=== PATIENT | male | born 2000 | race Hispanic/Latino ===

== ENCOUNTER 2022-01-08 11:44 | Emergency (ER) | payer OTHER ==
[~2022-01-08] VITALS: Ht 175.3 cm; Wt 72.7 kg
[2022-01-08 11:48] VITALS: BP 132/78
[2022-01-08] MEDS ORDERED: AMOX875T2 PO (12:17)
[2022-01-08] MEDS ORDERED: KETOROLAC 30 MG/ML 1ML VIAL IM ONE (12:20)
== END 2022-01-08 12:36 | disposition home or self-care (01) ==
LOC: M ED 11:44
DX: K08.89 Other specified disorders of teeth and supporting structures (principal)
CPT/HCPCS: 96372; 99282; J1885

== ENCOUNTER → 2024-03-12 | Outpatient (CLI) | payer OTHER ==
[~2024-03-12] MED LIST: AMOX875T2 PO; ISOVUE-300 61% 100ML VIAL As Ordered ONE; LIDOCAINE 1% MDV 20ML VIAL As Ordered ONE; TRIAMCINOLONE ACETONIDE SUSP 40MG/ML 1ML VIAL As Ordered ONE
== END ==
LOC: M RAD 13:29
PROVIDERS: ATTEND Physician Assistant Surgical
DX: S73.122A Ischiocapsular ligament sprain of left hip, initial encounter (principal); X58.XXXA Exposure to other specified factors, initial encounter; Y92.9 Unspecified place or not applicable; Y93.9 Activity, unspecified
CPT/HCPCS: 20610; 77002; J3301; Q9967

== ENCOUNTER → 2024-03-19 | Outpatient (CLI) | payer OTHER ==
[~2024-03-19] MED LIST changes: -ISOVUE-300 61% 100ML VIAL As Ordered ONE; -LIDOCAINE 1% MDV 20ML VIAL As Ordered ONE; +PROHANCE 279.3MG/ML 15ML VIAL ONE; +PROHANCE 279.3MG/ML 5ML VIAL ONE; -TRIAMCINOLONE ACETONIDE SUSP 40MG/ML 1ML VIAL As Ordered ONE
== END ==
LOC: M PLAIMG 07:10
PROVIDERS: ATTEND Physical Medicine & Rehabilitation
DX: M54.17 Radiculopathy, lumbosacral region (principal)
CPT/HCPCS: 72158; A9576

== ENCOUNTER → 2024-06-12 | Outpatient (REF) ==
[~2024-06-12] MED LIST changes: -PROHANCE 279.3MG/ML 15ML VIAL ONE; -PROHANCE 279.3MG/ML 5ML VIAL ONE
== END ==
LOC: M PLAIMG 08:21
PROVIDERS: ATTEND Internal Medicine
DX: R52 Pain, unspecified (principal)

== ENCOUNTER 2024-08-20 08:51 | Emergency (ER) | payer OTHER ==
[~2024-08-20] VITALS: Ht 172.7 cm; Wt 86.3 kg
[2024-08-20] MEDS: ACETAMINOPHEN 500 MG TAB PO ONE (11:01)
[2024-08-20 11:06] VITALS: BP 122/78; TEMP 98.1; O2SAT 96
[2024-08-20] MEDS ORDERED: METH-1164 PO (11:35)
== END 2024-08-20 12:00 | disposition home or self-care (01) ==
LOC: EDBD 08:51 → M ED 08:51
DX: S32.018A Other fracture of first lumbar vertebra, initial encounter for closed fracture (principal); S62.002A Unspecified fracture of navicular [scaphoid] bone of left wrist, initial encounter for closed fracture; V59.9XXA Occupant (driver) (passenger) of pick-up truck or van injured in unspecified traffic accident, initial encounter; Y92.9 Unspecified place or not applicable; Y93.9 Activity, unspecified; Y99.9 Unspecified external cause status

== ENCOUNTER 2024-10-06 21:35 | Emergency (ER) | payer OTHER ==
[~2024-10-06] VITALS: Ht 175.3 cm; Wt 78.3 kg
[~2024-10-06 21:35] MED LIST changes: +METH-1164 PO
[2024-10-07 04:01] VITALS: BP 115/69
[2024-10-07 04:16] VITALS: O2SAT 98
[2024-10-07 04:22] VITALS: TEMP 98.5
== END 2024-10-07 04:31 | disposition home or self-care (01) ==
LOC: M ED 21:35
DX: S92.354A Nondisplaced fracture of fifth metatarsal bone, right foot, initial encounter for closed fracture (principal); X50.1XXA Overexertion from prolonged static or awkward postures, initial encounter; Y92.009 Unspecified place in unspecified non-institutional (private) residence as the place of occurrence of the external cause; Y93.01 Activity, walking, marching and hiking; Y99.9 Unspecified external cause status

== ENCOUNTER 2025-01-19 17:23 | Emergency (ER) | payer OTHER ==
[~2025-01-19] VITALS: Ht 175.3 cm; Wt 81.8 kg
[2025-01-19 17:34] VITALS: BP 144/79; TEMP 98.7; O2SAT 98
[2025-01-19 18:15] LABS: HEMATOCRIT 46.9 % (42.0-52.0); HEMOGLOBIN 15.8 g/dl (13.5-17.5); MEAN CORPUSCULAR HEMOGLOBIN 29.3 pg (27.0-33.0); MEAN CORPUSCULAR HGB CONC 33.7 g/dl (32.0-36.5); MEAN CORPUSCULAR VOLUME 86.9 fl (80.0-96.0); PLATELET COUNT, AUTOMATED 314 10^3/uL (150-450); WHITE BLOOD COUNT 10.4 10^3/uL (4.0-10.0)
[2025-01-19 18:27] LABS: AMPHETAMINES LEVEL URINE NEGATIVE (NEGATIVE); BARBITURATES URINE NEGATIVE (NEGATIVE); BENZODIAZEPINES URINE NEGATIVE (NEGATIVE); COCAINE METABOLITE URINE NEGATIVE (NEGATIVE); METHADONE URINE NEGATIVE (NEGATIVE); OPIATES URINE NEGATIVE (NEGATIVE); PHENCYCLIDINE URINE NEGATIVE (NEGATIVE)
[2025-01-19 18:28] LABS: CANNABINOIDS URINE POSITIVE (NEGATIVE)
[2025-01-19 18:29] LABS: ETHYL ALCOHOL (ETHANOL) 0.003 % (0.000-0.010)
[2025-01-19 18:31] LABS: ALBUMIN 4.3 G/DL (3.2-5.2); ALKALINE PHOSPHATASE 71 U/L (40-129); ALT/SGPT 66 U/L (7.0-40); AST/SGOT 164 U/L (<34); BILIRUBIN,DIRECT 0.2 MG/DL (<0.4); BILIRUBIN,TOTAL 0.5 MG/DL (0.3-1.2); BLOOD UREA NITROGEN 21 MG/DL (9-23); CALCIUM LEVEL 9.5 MG/DL (8.5-10.1); CARBON DIOXIDE LEVEL 28 MMOL/L (20-31); CHLORIDE LEVEL 105 MMOL/L (98-107); CREATININE FOR GFR 0.98 MG/DL (0.70-1.30); GLOMERULAR FILTRATION RATE > 90.0 (>60); GLUCOSE, FASTING 125 MG/DL (60-100); POTASSIUM SERUM 3.8 MMOL/L (3.5-5.1); SALICYLATE LEVEL < 3.0 MG/DL (<30); SODIUM LEVEL 143 MMOL/L (136-145)
[2025-01-19 18:33] LABS: THYROID STIMULATING HORMONE 0.482 uIU/ML (0.55-4.78)
== END 2025-01-19 20:58 | disposition home or self-care (01) ==
LOC: M ED 17:23
DX: F43.0 Acute stress reaction (principal)

== ENCOUNTER 2025-09-13 03:39 | Emergency (ER) | payer OTHER ==
[~2025-09-13] VITALS: Ht 175.3 cm; Wt 80.4 kg
[2025-09-13 04:10] LABS: BASO # 0.0 10^3/uL (0.0-0.2); BASO % 0.3 % (0.0-1.0); EOS # 0.2 10^3/uL (0.0-0.5); EOS % 2.2 % (0.0-3.0); LYMPH # 3.8 10^3/uL (1.5-5.0); LYMPH % 49.5 % (24.0-44.0); MONO # 0.6 10^3/uL (0.0-0.8); MONO % 7.9 % (2.0-8.0); NEUTROPHILS # 3.1 10^3/uL (1.5-8.5); NEUTROPHILS % 39.8 % (36.0-66.0); PLATELET COUNT, AUTOMATED 321 10^3/uL (150-450)
[2025-09-13 04:35] LABS: ALT/SGPT 30.0 U/L (7.0-40); AST/SGOT 24.0 U/L (<34); CALCIUM LEVEL 9.3 MG/DL (8.5-10.1); CARBON DIOXIDE LEVEL 28.0 MMOL/L (20-31); CHLORIDE LEVEL 108.0 MMOL/L (98-107); CREATININE FOR GFR 1.21 MG/DL (0.70-1.30); GLOMERULAR FILTRATION RATE 85.2 (>60); POTASSIUM SERUM 4.4 MMOL/L (3.5-5.1); SODIUM LEVEL 146.0 MMOL/L (136-145)
[2025-09-13 06:48] LABS: KETONE, URINE AUTO RFX NEGATIVE (NEGATIVE); LEUKOCYTE ESTERASE UR AUTO RFX NEGATIVE (NEGATIVE); MUCUS, URINE RFX MODERATE (NEGATIVE); NITRITE, URINE AUTO RFX NEGATIVE (NEGATIVE); RBC, URINE AUTO RFX TNTC /HPF (0-3); SQUAM EPITHELIAL CELL UR AURFX 0 /HPF (0-6); WBC, URINE AUTO RFX 2 /HPF (0-3)
[2025-09-13] MEDS ORDERED: HYDR50TA70 PO (07:13)
[2025-09-13] MEDS ORDERED: QUET1TAB17 PO (07:13)
[2025-09-13] MEDS ORDERED: MELO15TA28 PO (07:13)
[2025-09-13] MEDS: KETOROLAC 30 MG/ML 1 ML VIAL IV ONE (07:54)
[2025-09-13] MEDS: NS (Normal Saline) 0.9% 1,000 ML IV ONE (07:54)
[2025-09-13] MEDS: ONDANSETRON 4MG/2ML VIAL IV ONE (07:54)
[2025-09-13] MEDS ORDERED: ONDA-282 PO (08:18)
[2025-09-13] MEDS ORDERED: KETO-204 PO (08:18)
[2025-09-13] MEDS ORDERED: TAMS1CAP17 PO (08:20)
[2025-09-13 08:35] VITALS: BP 110/58; TEMP 97; O2SAT 100
== END 2025-09-13 08:37 | disposition home or self-care (01) ==
LOC: M ED 03:39
DX: N13.2 Hydronephrosis with renal and ureteral calculous obstruction (principal); Z87.440 Personal history of urinary (tract) infections; Z79.899 Other long term (current) drug therapy
CPT/HCPCS: 74176; 80053; 81001; 83690; 85025; 87086; 96361; 96374; 96375; 99284; J1885; J2405